=== PATIENT | male | born 1975 | race Caucasian/White ===

== ENCOUNTER 2016-05-27 03:11 | Emergency (ER) | payer OTHER, SELFPAY ==
[~2016-05-27] VITALS: Ht 182.9 cm; Wt 98.4 kg
[2016-05-27 03:45] LABS: BASO % 0.4 % (0.0-1.0); EOS # 0.2 K/mm3 (0.0-0.50); EOS % 2.4 % (0.0-3.0); LARGE UNSTAINED CELL # 0.1 K/mm3 (0.0-0.4); LARGE UNSTAINED CELL % 1.4 % (0.0-4.0); LYMPH # 2.2 K/mm3 (1.5-4.5); LYMPH % 27.4 % (24.0-44.0); MEAN CORPUSCULAR HEMOGLOBIN 30.1 pg (27.0-33.0); MEAN CORPUSCULAR HGB CONC 33.4 g/dl (32.0-36.5); MEAN CORPUSCULAR VOLUME 90.1 fl (80.0-96.0); MONO # 0.4 K/mm3 (0.0-0.8); MONO % 4.7 % (0.0-5.0); NEUTROPHILS % 63.6 % (36.0-66.0); PLATELET COUNT, AUTOMATED 218 k/mm3 (150-450); RED CELL DISTRIBUTION WIDTH 13.2 % (11.5-14.5); WHITE BLOOD COUNT 7.8 K/mm3 (4.0-10.0)
[2016-05-27 04:00] LABS: ANION GAP 11 MEQ/L (8-16); BLOOD UREA NITROGEN 17 MG/DL (7-18); CALCIUM LEVEL 8.1 MG/DL (8.5-10.1); CARBON DIOXIDE LEVEL 25 MEQ/L (21-32); CHLORIDE LEVEL 109 MEQ/L (98-107); CREATININE FOR GFR 0.82 MG/DL (0.70-1.30); GLOMERULAR FILTRATION RATE > 60.0 (>60); GLUCOSE, FASTING 109 MG/DL (70-105); SODIUM LEVEL 145 MEQ/L (136-145)
[2016-05-27] MEDS ORDERED: KETOROLAC 30 MG/ML VIAL (J1885) IV ONE (04:15)
[2016-05-27] MEDS ORDERED: NS 1,000 ML IV ONE (04:15)
[2016-05-27 06:25] VITALS: BP 144/90
--- NOTE | 2016-05-27 08:55 | REP ---
Portable chest x-ray: Sitting AP view. History: Dyspnea and cough. Findings: EKG monitoring electrodes overlie the chest. The lungs are symmetrically aerated and free of infiltrate. Heart is not felt to be enlarged. Pleural angles are sharp. Impression: No active disease. Signed by Kevin Lind MD 05/27/2016 09:38 A
--- NOTE | 2016-05-27 19:58 | ECGEPIP ---
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
== END 2016-05-27 06:26 | disposition home or self-care (01) ==
LOC: EDBD 03:11 → M ED 03:52
DX: S39.012A Strain of muscle, fascia and tendon of lower back, initial encounter (principal); R53.83 Other fatigue; X50.1XXA Overexertion from prolonged static or awkward postures, initial encounter; Y92.89 Other specified places as the place of occurrence of the external cause; Y93.89 Activity, other specified; Y99.2 Volunteer activity
CPT/HCPCS: 71010; 80048; 85025; 93005; 93041; 94760; 96361; 96374; 99285; J1885

== ENCOUNTER 2016-11-16 17:41 | Emergency (ER) | payer OTHER ==
[~2016-11-16] VITALS: Ht 182.9 cm; Wt 95.2 kg
[2016-11-16 17:42] VITALS: BP 149/100
[2016-11-16] MEDS ORDERED: ASPI81TA85 PO (17:49)
== END 2016-11-16 18:37 | disposition home or self-care (01) ==
LOC: M ED 17:41
DX: T63.441A Toxic effect of venom of bees, accidental (unintentional), initial encounter (principal); R22.0 Localized swelling, mass and lump, head; Z79.82 Long term (current) use of aspirin

== ENCOUNTER 2019-11-13 04:47 | Emergency (ER) | payer BC, OTHER, SELFPAY ==
[~2019-11-13] VITALS: Ht 182.9 cm; Wt 96.4 kg
[~2019-11-13 04:47] MED LIST: ASPI81TA86 PO
[2019-11-13] MEDS ORDERED: TERB250T12 (05:07)
[2019-11-13 05:47] LABS: BASO % 0.5 % (0.0-1.0); EOS # 0.2 10^3/uL (0.0-0.5); EOS % 3.3 % (0.0-3.0); HEMATOCRIT 44.5 % (42.0-52.0); HEMOGLOBIN 14.6 g/dl (13.5-17.5); LYMPH % 29.4 % (24.0-44.0); MEAN CORPUSCULAR HEMOGLOBIN 30.2 pg (27.0-33.0); MEAN CORPUSCULAR HGB CONC 32.8 g/dl (32.0-36.5); MEAN CORPUSCULAR VOLUME 92.1 fl (80.0-96.0); MONO # 0.6 10^3/uL (0.0-0.8); MONO % 8.9 % (0.0-5.0); NEUTROPHILS # 3.8 10^3/uL (1.5-8.5); NEUTROPHILS % 57.6 % (36.0-66.0); PLATELET COUNT, AUTOMATED 210 10^3/uL (150-450); RED BLOOD COUNT 4.83 10^6/uL (4.30-6.10); WHITE BLOOD COUNT 6.6 10^3/uL (4.0-10.0)
[2019-11-13 06:07] LABS: BLOOD UREA NITROGEN 11 MG/DL (7-18); CARBON DIOXIDE LEVEL 27 MEQ/L (21-32); CHLORIDE LEVEL 108 MEQ/L (98-107); CREATININE FOR GFR 0.88 MG/DL (0.70-1.30); GLOMERULAR FILTRATION RATE > 60.0 (>60); GLUCOSE, FASTING 95 MG/DL (70-100); POTASSIUM SERUM 3.8 MEQ/L (3.5-5.1); SODIUM LEVEL 143 MEQ/L (136-145)
--- NOTE | 2019-11-13 08:28 | REPVR ---
PROCEDURE INFORMATION: Exam: MR Head Without Contrast Exam date and time: 11/13/2019 8:02 AM Age: 44 years old Clinical indication: Weakness, extremity; Bilateral; Additional info: Mass vs subacute/chronic infarct left parietal lobe TECHNIQUE: Imaging protocol: MR of the head without contrast. COMPARISON: CT Head without contrast 11/13/2019 5:17 AM FINDINGS: Brain: There is gliosis and encephalomalacia in left frontal lobe anterior to the precentral gyrus as well as the margin body of the left lateral ventricle at the frontal parietal junction. This shows no restricted diffusion or mass effect is consistent with a chronic infarct. There is no significant chronic hemosiderin staining associated with this infarct. Diffusion images are normal. No evidence of acute infarction. Mild T2 prolongation in the cerebral white matter, prolonged minute Mahnaz in periatrial regions and a lesion in left frontal white matter are nonspecific, but likely secondary to microvascular disease. No evidence of acute intracranial hemorrhage. No extra-axial fluid collections. Ventricles and cerebrospinal fluid spaces are normal in size and configuration for the patient's age. There is no evidence of mass-effect or midline shift. Flow voids of the [place] of [place] and major cerebral vascular structures appear intact. Craniocervical junction appears unremarkable, with normal position of cerebellar tonsils and no evidence of Chiari I malformation. Ventricles: No evidence of hydrocephalus Bones/joints: Unremarkable as visualized. Sinuses: There are 2 retention cysts or polyps in right larger than left maxillary sinuses. There is mucosal thickening bilateral ethmoid air cells. Mastoid air cells: No significant mastoid effusion. Orbits: Unremarkable as visualized. No exophthalmos or evidence of mass. Soft tissues: Unremarkable as visualized. IMPRESSION: Mild microvascular changes. Chronic left cerebral infarct predominantly involving frontal lobe. No acute infarct or acute hemorrhage. No evidence of mass producing lesion on noncontrast evaluation. Electronically signed by: Leticia Mckay On 11/13/2019 08:27:58 AM
--- NOTE | 2019-11-13 08:30 | REPVR ---
PROCEDURE INFORMATION: Exam: MR Angiogram Head Without Contrast, Arteries Exam date and time: 11/13/2019 8:02 AM Age: 44 years old Clinical indication: Weakness; Additional info: Mass vs subacute/chronic infarct left parietal lobe TECHNIQUE: Imaging protocol: MR angiogram head without contrast. Exam focused on the arteries. COMPARISON: CT Head without contrast 11/13/2019 5:17 AM FINDINGS: ANTERIOR CIRCULATION: Right internal carotid artery: Intracranial segment is patent with no significant stenosis. No aneurysm. Right middle cerebral artery: No occlusion or significant stenosis. No aneurysm. Right anterior cerebral artery: No occlusion or significant stenosis. No aneurysm. Left internal carotid artery: Intracranial segment is patent with no significant stenosis. No aneurysm. Left middle cerebral artery: No occlusion or significant stenosis. No aneurysm. Left anterior cerebral artery: No occlusion or significant stenosis. No aneurysm. POSTERIOR CIRCULATION: Right vertebral artery: No occlusion or significant stenosis. No aneurysm. Left vertebral artery: No occlusion or significant stenosis. No aneurysm. Basilar artery: No occlusion or significant stenosis. No aneurysm. Patent superior cerebellar arteries. Right posterior cerebral artery: No occlusion or significant stenosis. No aneurysm. Left posterior cerebral artery: No occlusion or significant stenosis. No aneurysm. IMPRESSION: Normal MRA. No vascular occlusion or stenosis. Electronically signed by: Leticia Mckay On 11/13/2019 08:30:17 AM
[2019-11-13] MEDS ORDERED: ASPI325T57 PO (08:52)
[2019-11-13 09:16] VITALS: BP 133/78
--- NOTE | 2019-11-24 12:14 | ECGEPIP ---
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
== END 2019-11-13 10:19 | disposition home or self-care (01) ==
LOC: M ED 04:47
DX: R25.3 Fasciculation (principal); M79.602 Pain in left arm; G47.33 Obstructive sleep apnea (adult) (pediatric)

== ENCOUNTER 2020-10-05 10:09 | Emergency (ER) | payer BC, OTHER ==
[~2020-10-05] VITALS: Ht 182.9 cm; Wt 90.9 kg
[~2020-10-05 10:09] MED LIST changes: +ASPI325T57 PO; +TERB250T12
[2020-10-05] MEDS ORDERED: LIDOCAINE W/EPINEPHRINE 1% 20ML VIAL SC ONE (11:20)
[2020-10-05 13:27] VITALS: BP 136/85
== END 2020-10-05 13:34 | disposition home or self-care (01) ==
LOC: M ED 10:09 → EDBD 10:09 → M ED 13:34
DX: S81.011A Laceration without foreign body, right knee, initial encounter (principal); W31.2XXA Contact with powered woodworking and forming machines, initial encounter; Y92.9 Unspecified place or not applicable; Y93.9 Activity, unspecified; Y99.0 Civilian activity done for income or pay

== ENCOUNTER 2021-08-06 13:52 | Emergency (ER) | payer OTHER ==
[~2021-08-06 13:52] MED LIST changes: -TERB250T12; +TERB250T91
[2021-08-06 14:06] VITALS: BP 178/96
[2021-08-06] MEDS ORDERED: ACETAMINOPHEN 500 MG TAB PO ONE (14:45)
== END 2021-08-06 16:09 | disposition home or self-care (01) ==
LOC: M ED 13:52 → EDBD 13:52 → M ED 16:09
DX: S00.01XA Abrasion of scalp, initial encounter (principal); S00.03XA Contusion of scalp, initial encounter; W22.8XXA Striking against or struck by other objects, initial encounter; Y92.018 Other place in single-family (private) house as the place of occurrence of the external cause; Z79.82 Long term (current) use of aspirin